=== PATIENT | female | born 1975 | race Native Hawaiian/Other Pacific Islander ===

== ENCOUNTER 2016-11-05 08:36 | Observation (INO) | payer BC ==
[~2016-11-05] VITALS: Ht 154.9 cm; Wt 106.2 kg
[2016-11-05] VITALS (8 sets, daily range): BP systolic 108–182; BP diastolic 49–116; TEMP 97.9–98.6; Ht 154.9 cm; Wt 106.2 kg
[2016-11-05 08:58] LABS: PLATELET COUNT 461 K/uL (152-353)
[2016-11-05 09:08] LABS: SODIUM 137 mmol/L (136-145)
[2016-11-06] VITALS: BP 130/62; TEMP 98.1
[2016-11-06 04:00] VITALS: BP 149/72; TEMP 97.8
[2016-11-06 08:00] VITALS: BP 123/68; TEMP 97.9
== END 2016-11-06 13:15 | disposition home or self-care (01) ==
LOC: ED 08:36 → MED/SURG 09:20
PROVIDERS: Specialist; ADMIT Family Medicine
DX: I47.1 Supraventricular tachycardia (principal); K21.9 Gastro-esophageal reflux disease without esophagitis; F41.8 Other specified anxiety disorders; E87.6 Hypokalemia
CPT/HCPCS: 36415; 80053; 82550; 83735; 84484; 85027; 93005; 96360; 96365; 96366; 96374; 96375; 99220; 99284; G0378; J0150; J0153; J3490

== ENCOUNTER 2017-04-14 09:11 | Outpatient (CLI) | payer BC ==
[2017-04-14 09:28] LABS: PLATELET COUNT 386 K/uL (152-353)
[2017-04-14 09:42] LABS: POTASSIUM 3.9 mmol/L (3.6-5.2)
== END 2017-04-14 19:18 | disposition home or self-care (01) ==
LOC: LABW 09:11
PROVIDERS: Internal Medicine Clinical Cardiac Electrophysiology
DX: Z79.899 Other long term (current) drug therapy (principal); Z51.81 Encounter for therapeutic drug level monitoring
CPT/HCPCS: 36415; 80053; 80061; 82248; 85027

== ENCOUNTER 2017-05-13 13:04 | Emergency (ER) | payer BC ==
[~2017-05-13] VITALS: Ht 157.5 cm; Wt 105.7 kg
[2017-05-13 13:05] VITALS: TEMP 97.8
[2017-05-13 13:27] LABS: PLATELET COUNT 556 K/uL (152-353)
[2017-05-13 13:36] LABS: POTASSIUM 3.6 mmol/L (3.6-5.2); SODIUM 131 mmol/L (136-145)
[2017-05-13 13:50] LABS: PARTIAL THROMBOPLASTIN TIME 23.1 SECONDS (24.5-33.6)
[2017-05-13 15:00] VITALS: BP 98/60
== END 2017-05-13 15:02 | disposition home or self-care (01) ==
LOC: ED 13:04
PROVIDERS: Family Medicine
DX: I47.1 Supraventricular tachycardia (principal)
CPT/HCPCS: 36415; 80053; 82550; 83735; 84443; 84484; 85027; 85610; 85730; 93005; 96374; 96375; 99284; J0150; J0153; J3490

== ENCOUNTER 2017-09-05 09:24 | Outpatient (CLI) | payer BC ==
[2017-09-05 10:05] LABS: POTASSIUM 3.9 mmol/L (3.6-5.2)
[2017-09-05 10:14] LABS: PLATELET COUNT 413 K/uL (152-353)
== END 2017-09-05 19:44 | disposition home or self-care (01) ==
LOC: LABW 09:24
PROVIDERS: Internal Medicine Clinical Cardiac Electrophysiology
DX: I47.1 Supraventricular tachycardia (principal); I10 Essential (primary) hypertension
CPT/HCPCS: 36415; 80053; 80061; 82248; 85027